=== PATIENT | male | born 1960 | race Caucasian/White ===

== ENCOUNTER 2023-07-15 15:40 | Emergency (ER) | payer OTHER, SELFPAY ==
[2023-07-15 15:42] VITALS: BP 156/84
--- NOTE | 2023-07-15 15:54 | ED.GENMED ---
History of Present Illness
<Lizette Dunn PA-C - Last Filed: 07/15/23 16:28>
General
Chief Complaint: Skin Surface Trauma
Source: patient
Exam Limitations: none
Time Seen by Provider: 07/15/23 15:52
Nursing documentation reviewed up to this point in time: agreed with
Travel History
Have you had any contact with someone who has COVID-19?: No
Do you have any symptoms of coronavirus? Fever > 100 degrees, chills, cough, shortness of breath, sore throat, loss of taste or smell, muscle aches, or headache?: No
History of Present Illness
History of Present Illness:
63-year-old male with a past medical history of hypertension presenting emergency department today with a laceration to his left finger following injury from mandrex saw. Patient states that he was cleaning in the garage and clearing away would
when this injury occurred. Patient at the time apply pressure to stop the bleeding and subsequently applied Neosporin. He went to patient for who cleaned the wound, gave him Tylenol, and given a tetanus shot before sending him to emergency
department for further evaluation. Patient had a lot of pain at the time but states that the Tylenol did significantly help relieve it. Patient denies any other injuries. Patient denies any allergies to medications. Patient denies any
paresthesias.
Past History
<Lizette Dunn PA-C - Last Filed: 07/15/23 16:28>
Past History
ED Past Medical History: HTN
ED Past Surgical History: None
Social History
Tobacco: Non-smoker
Alcohol: Other
Personal:
Living: with family
Employment: Employed
Family History
Family History: Negative Early CAD
Review of Systems
<OMARI Jaime Last Filed: 07/15/23 16:28>
Review of Systems
All Other Systems: ROS reviewed and negative except as documented in HPI and ROS
Phy Exam
<Lizette Dunn PA-C - Last Filed: 07/15/23 16:28>
Physical Exam
Physical Exam:
Vitals: Patient's vitals are stable
General: Patient is well-appearing, no acute distress
Skin: There is a 4 cm jagged laceration with significant skin loss to the left lateral index finger with active bleeding, subcutaneous tissue exposed
Head: Normocephalic, atraumatic
Eyes: Sclera nonicteric, EOMs intact.
Cardiac: Regular rate
Peripheral vascular: Patient has 2+ radial and ulnar pulses bilaterally.
Pulm: Normal respiratory effort
Musculoskeletal: Full range of motion of all digits. FDP and FDS testing intact in left hand in all digits. No bony tenderness to palpation. Full range of motion of left wrist joint with no pain with range of motion.
Neuro: CN II-XII intact. No focal neurologic deficits. Sensation intact in bilateral upper extremities.
Course
<Lizette uDnn PA-C - Last Filed: 07/15/23 16:28>
Orders/Labs/Results
Orders:
Orders
07/15/23 16:04
CR Finger(s)/thumb Min 2 Vw Lt Urgent
Comment:
Reason For Exam: left index finger saw njury
07/15/23 16:11
Ibuprofen [Motrin] 600 mg PO NOW STA
Vital Signs
Initial and Last Documented VS:
Initial Vital Signs
Temp Pulse Resp BP Pulse Ox
98.2 F 71 16 156/84 98
07/15/23 15:42 07/15/23 15:42 07/15/23 15:42 07/15/23 15:42 07/15/23 15:42
Last Documented Vital Signs
Temp Pulse Resp BP Pulse Ox
98.2 F 71 16 156/84 98
07/15/23 15:42 07/15/23 15:42 07/15/23 15:42 07/15/23 15:42 07/15/23 15:42
<Lupillo Doan DO - Last Filed: 07/15/23 16:46>
Orders/Labs/Results
Orders:
Orders
07/15/23 16:04
CR Finger(s)/thumb Min 2 Vw Lt Urgent
Comment:
Reason For Exam: left index finger saw njury
07/15/23 16:11
Ibuprofen [Motrin] 600 mg PO NOW STA
Vital Signs
Initial and Last Documented VS:
Initial Vital Signs
Temp Pulse Resp BP Pulse Ox
98.2 F 71 16 156/84 98
07/15/23 15:42 07/15/23 15:42 07/15/23 15:42 07/15/23 15:42 07/15/23 15:42
Last Documented Vital Signs
Temp Pulse Resp BP Pulse Ox
98.2 F 71 16 156/84 98
07/15/23 15:42 07/15/23 15:42 07/15/23 15:42 07/15/23 15:42 07/15/23 15:42
<Lizette Dunn PA-C - Last Filed: 07/15/23 16:28>
MDM/Problems Addressed
Differential Diagnosis Includes:
ddx include laceration, abrasion, distal phalanx fracture, flexor tendon tear, flexor tendon sprain/strain.
MDM/Problems Addressed:
finger laceration
Chronic conditions affecting care: HTN
Acute Exacerbation and/or Progression of Chronic Illness: HTN
<Lizette Dunn PA-C - Last Filed: 07/15/23 16:28>
*Pulse Oximetry
Patient hypoxic: no
*Critical Care Note
Total Time (30-74mins, 75-104mins- exclusive of procedures): Not Applicable
ED Attending Note
<Lizette Dunn PA-C - Last Filed: 07/15/23 16:28>
-
Portions of this chart may have been created with voice recognition software.� Occasional wrong word or��sound alike� substitutions may have occurred due to the inherent limitations of voice recognition software.
<Lupillo Doan DO - Last Filed: 07/15/23 16:46>
ED Attending Note
Patient seen and examined by attending physician: Yes
I performed the substantive portion of visit, reviewed & personally made and approve the management plan that is documented in note by myself or RAFIA.: Yes
ED Attending Note:
I have reviewed Lizette's note:
Pt suffered injury to left index finger with saw. Originally seen at urgent care and sent here for further evaluation. Pt is right hand dominate.
VSS
Nickel sized area of avulsed tissue located on radial side of index finger over the proximal phalanx to the pip joint. Cap refill intact. Sensation intact. Tendon not visible in the wound bed. Tendon exam intact.
A/P given the amount of tissue that is avulsed this wound is not suturable here in the emergency room. We will discuss with hand surgery the past approach to this wound therapy healing by secondary intention or operative intervention.
Discharge Plan
Departure
Prescriptions:
No Action
benazepril 20 MG tablet
20 mg PO DAILY
ibuprofen 600 MG tablet
600 mg PO Q6H Qty: 30 0RF
albuterol sulfate 1 PUFF HFA aerosol inhaler
1 - 2 puff inhalation .Q4-6HPRN PRN (Reason: WHEEZING) Qty: 1 0RF
acetaminophen [Tylenol Extra Strength] 500 MG tablet
500 mg PO Q4HPRN PRN (Reason: fever, pain) Qty: 30 0RF
ondansetron 4 mg tablet,disintegrating
4 mg PO TIDPRN PRN (Reason: nausea/vomiting) Qty: 10 0RF
Interventions
Interventions:
*Risk Screen - Suicide Last Done: 07/15/23 15:42
*General Assessment Last Done: 07/15/23 15:42
*Neglect/Abuse Screening Last Done: 07/15/23 15:42
Discharge Date and Time
Print Language: LITHUANIAN
[2023-07-15] MEDS: MOTRIN 600 MG PO (16:32)
== END 2023-07-15 18:50 | disposition home or self-care (01) ==
LOC: EMR 15:40
PROVIDERS: EMERGENCY PHYSICIAN Emergency Medicine; FAMILY PHYSICIAN Family Medicine
DX: S61.211A Laceration without foreign body of left index finger without damage to nail, initial encounter (principal); W27.0XXA Contact with workbench tool, initial encounter; I10 Essential (primary) hypertension
CPT/HCPCS: 99283; 73140

== ENCOUNTER → 2024-06-08 08:37 | Outpatient (REF) | payer BC, SELFPAY | LOC: EMG 08:37 | PROVIDERS: ATTENDING PHYSICIAN Podiatrist Foot Surgery; FAMILY PHYSICIAN Family Medicine | DX: G62.9 Polyneuropathy, unspecified (principal); R20.0 Anesthesia of skin | CPT/HCPCS: 95886; 95911 ==